=== PATIENT | female | born 2000 | race Asian ===

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

== ENCOUNTER 2018-10-22 10:59 | Outpatient (CLI) | payer BC | END 2018-10-22 20:16 | disposition home or self-care (01) | LOC: LABW 10:59 | DX: R10.2 Pelvic and perineal pain (principal); N93.8 Other specified abnormal uterine and vaginal bleeding; N91.1 Secondary amenorrhea | CPT/HCPCS: 36415; 84702 ==

== ENCOUNTER 2019-06-16 14:40 | Outpatient (CLI) | payer BC | END 2019-06-16 22:20 | disposition home or self-care (01) | LOC: RAD 14:40 | DX: R10.9 Unspecified abdominal pain (principal) ==

== ENCOUNTER 2019-10-17 16:30 | Emergency (ER) | payer BC ==
[~2019-10-17] VITALS: Ht 172.7 cm; Wt 113.4 kg
[2019-10-17 17:58] LABS: PLATELET COUNT 332 K/uL (152-353)
[2019-10-17 18:02] LABS: POTASSIUM 4.4 mmol/L (3.6-5.2); SODIUM 141 mmol/L (136-145)
[2019-10-17 21:04] VITALS: BP 122/69
== END 2019-10-17 21:04 | disposition home or self-care (01) ==
LOC: ED 16:30
PROVIDERS: Emergency Medicine
DX: R10.11 Right upper quadrant pain (principal)
CPT/HCPCS: 80053; 81000; 82150; 83690; 84702; 85027; 96360; 99284; J1885

== ENCOUNTER 2020-01-06 20:41 | Emergency (ER) | payer BC ==
[~2020-01-06] VITALS: Ht 172.7 cm; Wt 113.4 kg
[2020-01-06 21:42] LABS: PLATELET COUNT 295 K/uL (152-353)
[2020-01-06 22:58] VITALS: BP 129/64; TEMP 97.7
== END 2020-01-06 22:58 | disposition home or self-care (01) ==
LOC: ED 20:41
PROVIDERS: Emergency Medicine
DX: N39.0 Urinary tract infection, site not specified (principal); N30.91 Cystitis, unspecified with hematuria
CPT/HCPCS: 36415; 80053; 81000; 81025; 85027; 87077; 87086; 87088; 87186; 96372; 99283; J1885